=== PATIENT | female | born 1955 | race Caucasian/White ===

== ENCOUNTER → 2017-04-15 | Outpatient (CLI) | payer MEDICAID, OTHER | LOC: FIMAGING 12:29 | PROVIDERS: ATTEND Family Medicine | DX: Z13.820 Encounter for screening for osteoporosis (principal); M81.0 Age-related osteoporosis without current pathological fracture; Z78.0 Asymptomatic menopausal state; Z79.899 Other long term (current) drug therapy ==

== ENCOUNTER → 2017-10-04 | Outpatient (CLI) | payer OTHER | LOC: FIMAGING 12:49 | PROVIDERS: ATTEND Family Medicine | DX: R91.1 Solitary pulmonary nodule (principal) ==

== ENCOUNTER 2018-01-27 13:59 | Day surgery (SDC) | payer OTHER ==
[2018-01-27] MEDS ORDERED: LIDOCAINE 1% 2 ML INJ ID PRN (14:43)
[2018-01-27] MEDS ORDERED: LR 1,000 ML IV ONE (14:43)
[2018-01-27] MEDS ORDERED: ALBUTEROL 3 ML DEYVIAL IH PRN (15:41)
[2018-01-27] MEDS ORDERED: NS 500 ML IV PRN (15:41)
[2018-01-27] MEDS ORDERED: ONDANSETRON 4 MG/2 ML VIAL IVP PRN (15:41)
[2018-01-27] MEDS ORDERED: NALOXONE HCL 0.4 MG/ML INJ IVP PRN (15:41)
[2018-01-27] MEDS ORDERED: LR 500 ML IV PRN (15:41)
--- NOTE | 2018-01-27 15:41 | PDANEPAE ---
ANE History of Present Illness here for EGD ANE Past Medical History - Cardiovascular History Hx Hypertension: No Hx Arrhythmias: No Hx Chest Pain: No Hx Coronary Artery / Peripheral Vascular Disease: No Hx CHF / Valvular Disease: No Hx Palpitations: No - Pulmonary History Hx COPD: No Hx Asthma/Reactive Airway Disease: No Hx Recent Upper Respiratory Infection: No Hx Oxygen in Use at Home: No Hx Sleep Apnea: No Sleep Apnea Screening Result - Last Documented: Negative Pulmonary History Comment: recent sob- worked up by pcp and seeing Dr. Cai tomorrow 01/22/18. hx of o2 at noc in past - Neurologic History Hx Cerebrovascular Accident: No Hx Seizures: No Hx Dementia: No - Endocrine History Hx Diabetes: No Endocrine History Comment: hypothyroidism - Renal History Hx Renal Disorders: No Renal History Comment: PELVIC ORGAN PROLAPSE - Liver History Hx Hepatic Disorders: No Hepatic History Comment: HEAVY METAL PPISIONING DX 2010. HAS DONE CHELATION THERAPY - Neurological & Psychiatric Hx Hx Neurological and Psychiatric Disorders: No Neurological / Psychiatric History Comment: hx of anxiety none currently - Cancer History Hx Cancer: Yes Cancer History Comment: basal cell and recent pre-cancerous mohs procedure done to lip - Congenital Disorder History Hx Congenital Disorders: No - GI History Hx Gastrointestinal Disorders: Yes Gastrointestinal History Comment: ibsd. chronic diarrhea has been better with immodium. reflux - Other Health History Other Health History: HEAVY METAL PPISIONING DX 2010. HAS DONE CHELATION THERAPY. arthritis. wears reading glasses - Chronic Pain History Chronic Pain: Yes (arthritic pain) - Surgical History Prior Surgeries: 10/2017 mohs procedure to lip. 11/21/15 egd and colonoscopy with yancy. basal cell removed from eyelid 13-14 yrs ago. tonsillectomy as child. LT BREAST BX 23 yrs ago. TONSILLECTOMY ANE Review of Systems Review of systems is: negative Review of Systems: - Exercise capacity Exercise capacity: >=4 METS METS (RN): 4 METS ANE Patient History - Allergies Allergies/Adverse Reactions: gluten Allergy (Verified 01/21/18 11:50) IBS magnesium Allergy (Verified 01/27/18 14:57) uses magnesium spray but cannot take orally - Home Medications Home medications: home medication list seen and reviewed Home Medications: ARMOUR THYROID 11/10/15 [Last Taken 01/27/18 04:30] Acyclovir 11/10/15 [Last Taken 01/26/18] Aspirin 81mg (OTC) 81 mg PO DAILY 11/10/15 [Last Taken 01/26/18] Herbals/Supplements -Info Only 11/10/15 [Last Taken 1 Week Ago ~01/20/18] Pregnenolone Micronized 11/10/15 [Last Taken 01/26/18] Estrace Vaginal (*) 01/21/18 [Last Taken 01/26/18] Yuvafem 01/21/18 [Last Taken 01/26/18] Zantac 01/21/18 [Last Taken 01/26/18] - NPO status NPO Status: no food or drink >8 hours NPO Since - Liquids (Date): 01/27/18 NPO Since - Liquids (Time): 06:30 NPO Since - Solids (Date): 01/27/18 NPO Since - Solids (Time): 05:30 - Smoking Hx Smoking Status: Never smoked - Family Anes Hx Family Hx Anesthesia Complications: mother had same issues ANE Labs/Vital Signs - Vital Signs Vital Signs: reviewed preoperatively; see RN documention for details Blood Pressure: 131/79 Heart Rate: 61 Respiratory Rate: 18 O2 Sat (%): 94 Height: 154.94 cm Weight: 55.792 kg ANE Physical Exam - Airway Neck exam: FROM Mallampati Score: Class 1 - Pulmonary Pulmonary: no respiratory distress - ASA Status ASA Status: II ANE Anesthesia Plan Anesthesia Plan: GA with mask
[2018-01-27] MEDS ORDERED: PROPOFOL 200 MG/20 ML VIAL ONE ×2 (15:44)
[2018-01-27] MEDS ORDERED: INDOMETHACIN 50 MG SUPP PR PRN (15:49)
--- NOTE | 2018-01-27 15:49 | PDGENHP ---
History & Physical Chief Complaint: gerd/dysphagia History of Present Illness: 62 year old female presents for evaluatin of dysphagia/heartburn/diarrhea. Pertinent Past, Social, Family History: PMHx: basal cell, hypothyroidism Relevant Physical Exam: HEENT: anicteric. CV: RRR +s1s2. Lungs: CTAB. Abd: soft, nt, + BS Cardiorespiratory Assessment: ASA 2
[2018-01-27] MEDS ORDERED: NS 500 ML IV SCH (16:00)
--- NOTE | 2018-01-27 16:30 | GIREPORT ---
[facility] - Endoscopy Department Patient Name: Tiff Salazar Procedure Date: 01/27/2018 9:16 AM Patient Type: Outpatient Attending MD/ ER Physician: Lico Sood MD Procedure: Upper GI endoscopy Indications: Dysphagia, Heartburn Patient Profile: 62 year old female presents for evaluation of dysphagia/heartburn. Providers: Lico Sood MD Medicines: Monitored Anesthesia Care Complications: No immediate complications. Estimated blood loss: Minimal. Description of Procedure: After obtaining informed consent, the endoscope was passed under direct vision. Throughout the procedure, the patient's blood pressure, pulse, and oxygen saturations were monitored continuously. The Endoscope was intro duced through the mouth, and advanced to the second part of duodenum. The pat ient tolerated the procedure well. Findings: The Z-line was irregular. Biopsies were taken with a cold forceps for histology. Biopsies were taken with a cold forceps in the middle third of the esop hagus for histology. A TTS dilator was passed through the scope. Empiric dilation with a 15-16.5-18 mm balloon dilator was performed to 18 mm in the lower third of the esophagus. Patchy mildly erythematous mucosa was found in the entire examined stom ach. Biopsies were taken with a cold forceps for histology. Multiple diminutive sessile polyps were found in the cardia, in the gas tric fundus and in the gastric body. Biopsies were taken with a cold forceps for histology. A hiatal hernia was present. The examined duodenum was normal. Estimated Blood Loss: Estimated blood loss was minimal. Post Op Diagnosis: - Z-line irregular. Biopsied. - Erythematous mucosa in the stomach. Biopsied. - Multiple gastric polyps. Biopsied. - Hiatal hernia. - Normal examined duodenum. - Biopsies were taken with a cold forceps for histology in the middle t hird of the esophagus. - Empiric dilation performed in the lower third of the esophagus. - Etiology? Suspect symptoms are secondary to GERD? Await biopsy result s. If doesnt improve on H2 blockers which she is currently taking would add P PI therapy. She is hesitant to start PPI at this time. Recommendation: - Discharge patient to home (with escort). - Resume regular diet. - Continue present medications. - Await pathology results. - Thank you for allowing me to participate in the care of your patient. Attending Participation: I personally performed the entire procedure. Lico Sood MD Lico Sood MD 01/27/2018 4:29:43 PM This report has been signed electronicallyLico Sood MD Number of Addenda: 0 Note Initiated On: 01/27/2018 9:16 AM [id number]
[2018-01-27 17:31] VITALS: BP 142/82
== END 2018-01-27 17:31 | disposition home or self-care (01) ==
LOC: FSGY 13:59
PROVIDERS: ATTEND Internal Medicine Gastroenterology
PROC: 0DB28ZX Excision of Middle Esophagus, Via Natural or Artificial Opening Endoscopic, Diagnostic (ICD-10-PCS; principal; 2018-01-27 15:30)
PROC: 0DB68ZX Excision of Stomach, Via Natural or Artificial Opening Endoscopic, Diagnostic (ICD-10-PCS; principal; 2018-01-27 15:30)
DX: K29.70 Gastritis, unspecified, without bleeding (principal); K31.7 Polyp of stomach and duodenum; K20.9 Esophagitis, unspecified
CPT/HCPCS: C1726; J2704

== ENCOUNTER → 2018-08-29 | Outpatient (CLI) | payer OTHER | LOC: FIMAGING 12:44 | PROVIDERS: ATTEND Family Medicine | DX: Z12.31 Encounter for screening mammogram for malignant neoplasm of breast (principal) ==